=== PATIENT | male | born 1945 | race Caucasian/White ===

== ENCOUNTER 2016-09-21 14:21 | Emergency (ER) | payer MEDICARE ==
[~2016-09-21] VITALS: Ht 175.3 cm; Wt 105.0 kg
[2016-09-21 15:14] LABS: HEMATOCRIT 42.6 % (39.0-50.0); HEMOGLOBIN 14.5 g/dl (14.0-18.0); IMMATURE GRANULOCYTES 0.3 % (0.0-1.0); MEAN CELL VOLUME 92.6 fL CALC (80.0-100.0); MEAN CORPUSCULAR HGB 31.5 pG CALC (26.0-32.0); NEUT# 7.16 thou/uL (1.82-7.42); RED BLOOD COUNT 4.6 mill/uL (4.70-6.10); RED CELL DISTRI WIDTH 12.5 % (11.5-15.5)
[2016-09-21 15:26] LABS: ALBUMIN 4.3 g/dL (3.2-5.0); ALKALINE PHOSPHATASE 55 u/l (38-126); AMYLASE 49 u/l (30-110); ANION GAP 17 (6-22 (CALC)); BILIRUBIN, TOTAL 0.5 mg/dL (0.0-1.4); BUN 15 mg/dL (8-23); BUN/CREATININE RATIO 18 (12-20 (CALC)); CALCIUM 9.1 mg/dL (8.4-10.2); CARBON DIOXIDE 25 mmol/l (22-30); CHLORIDE 104 mmol/l (95-108); CREATININE 0.9 mg/dL (0.7-1.3); GFR > 60 ML/MIN (>=60 (CALC)); GFR FOR AFR.AMER. > 60 ML/MIN (>=60 (CALC)); GLUCOSE 168 mg/dL (82-115); LIPASE 68 u/l (23-300); SGOT/AST 19 u/l (19-48); SGPT/ALT 40 u/l (11-66); SODIUM 141 mmol/l (137-146); TOTAL PROTEIN 7.4 g/dL (6.3-8.2)
[2016-09-21 15:35] LABS: MYOGLOBIN 34 ng/mL (0 - 121)
[2016-09-21 15:40] LABS: INTERNATIONAL NORMALIZED RATIO 0.9 RATIO (0.7-1.3); PROTHROMBIN TIME 10.1 SECONDS (9.0-12.5)
[2016-09-21 15:40] LABS: URINE BILIRUBIN - DIPSTICK NEGATIVE (NEGATIVE); URINE BLOOD DIPSTICK NEGATIVE (NEGATIVE); URINE CLARITY CLEAR; URINE COLOR YELLOW; URINE GLUCOSE - DIPSTICK NEGATIVE (NEGATIVE); URINE KETONE NEGATIVE (NEGATIVE); URINE LEUK ESTERASE NEGATIVE (NEGATIVE); URINE NITRITE - DIPSTICK NEGATIVE (Negative); URINE PH 5.5 (4.5-8.0); URINE PROTEIN - DIPSTICK NEGATIVE (NEG-TRACE); URINE SPECIFIC GRAVITY >=1.030; URINE UROBILINOGEN - DIPSTICK 0.2 E.U./dL (0.2)
[2016-09-21] MEDS ORDERED: SIMVASTATIN40 MG PO (17:08)
[2016-09-21] MEDS ORDERED: LISINOPRIL20 MG PO (17:08)
[2016-09-21] MEDS ORDERED: ASPIRIN81 MG PO (17:08)
[2016-09-21] MEDS ORDERED: MULTI VITAMIN D1 TAB PO (17:09)
[2016-09-21 17:38] VITALS: BP 151/83
== END 2016-09-21 18:40 | disposition short-term general hospital (02) ==
LOC: ED 14:21
PROVIDERS: Emergency Medicine
DX: K57.33 Diverticulitis of large intestine without perforation or abscess with bleeding (principal); I10 Essential (primary) hypertension
CPT/HCPCS: Q9967

== ENCOUNTER 2019-01-13 09:06 | Emergency (ER) | payer OTHER, MEDICARE ==
[~2019-01-13] VITALS: Ht 175.3 cm; Wt 100.0 kg
[~2019-01-13 09:06] MED LIST: ASPIRIN81 MG PO; LISINOPRIL20 MG PO; MULTI VITAMIN D1 TAB PO; SIMVASTATIN40 MG PO
[2019-01-13 11:28] LABS: IMMATURE GRANULOCYTES 0.6 % (0.0-5.0); MEAN CELL VOLUME 91.9 fL CALC (80.0-100.0); MEAN CORPUSCULAR HGB CONC 33.7 g/L CALC (32.0-36.0); NEUT# 12.25 thou/uL (1.82-7.42); RED BLOOD COUNT 5.32 mill/uL (4.70-6.10); RED CELL DISTRI WIDTH 12.8 % (11.5-15.5)
[2019-01-13 11:29] LABS: HEMATOCRIT 48.9 % (39.0-50.0); HEMOGLOBIN 16.5 g/dl (14.0-18.0)
[2019-01-13 11:44] LABS: ANION GAP 16 (6-22 (CALC)); BUN 16 mg/dL (8-23); BUN/CREATININE RATIO 23 (12-20 (CALC)); CARBON DIOXIDE 24 mmol/l (22-30); CHLORIDE 104 mmol/l (95-108); CREATININE 0.7 mg/dL (0.7-1.3); GFR > 60 ML/MIN (>=60 (CALC)); GFR FOR AFR.AMER. > 60 ML/MIN (>=60 (CALC)); POTASSIUM 4.7 mmol/l (3.5-5.1); SODIUM 140 mmol/l (137-146)
[2019-01-13 16:05] VITALS: BP 130/64
== END 2019-01-13 16:27 | disposition home or self-care (01) | DRG 563 ==
LOC: ED 09:06
PROVIDERS: Family Medicine
PROC: 0RSJXZZ Reposition Right Shoulder Joint, External Approach (ICD-10-PCS; principal; 2019-01-13)
DX: S43.014A Anterior dislocation of right humerus, initial encounter (principal); I10 Essential (primary) hypertension; W01.0XXA Fall on same level from slipping, tripping and stumbling without subsequent striking against object, initial encounter; Y92.009 Unspecified place in unspecified non-institutional (private) residence as the place of occurrence of the external cause

== ENCOUNTER 2020-04-30 09:03 | Emergency (ER) | payer OTHER, MEDICARE ==
[~2020-04-30] VITALS: Ht 177.8 cm; Wt 95.0 kg
[2020-04-30] MEDS ORDERED: VENTOLIN HFA IN (10:37)
[2020-04-30 10:58] VITALS: BP 129/79
== END 2020-04-30 10:58 | disposition home or self-care (01) | DRG 179 ==
LOC: ED 09:03
DX: U07.1 COVID-19 (principal); I10 Essential (primary) hypertension